=== PATIENT | female | born 1960 | race Asian ===

== ENCOUNTER 2018-05-11 15:11 | Emergency (ER) | payer OTHER ==
[~2018-05-11] VITALS: Ht 152.4 cm; Wt 63.6 kg
[2018-05-11] MEDS ORDERED: ASPI81 PO (15:21)
[2018-05-11] MEDS ORDERED: METF-960 PO (15:21)
[2018-05-11] MEDS ORDERED: LOSA50TA64 PO (15:21)
[2018-05-11] MEDS ORDERED: AMLO-512 PO (15:21)
[2018-05-11 15:29] LABS: GLUCOSE,POINT OF CARE 160 MG/DL (70-110)
[2018-05-11] MEDS ORDERED: KETOROLAC TROMETHAMINE 30 MG/ML VIAL IM ONE (18:00)
[2018-05-11 18:15] VITALS: BP 122/80
== END 2018-05-11 19:00 | disposition home or self-care (01) ==
LOC: EMS 15:11
DX: S83.91XA Sprain of unspecified site of right knee, initial encounter (principal); M10.9 Gout, unspecified; I10 Essential (primary) hypertension; E11.9 Type 2 diabetes mellitus without complications; Z79.84 Long term (current) use of oral hypoglycemic drugs; X58.XXXA Exposure to other specified factors, initial encounter; Y93.89 Activity, other specified; Y92.89 Other specified places as the place of occurrence of the external cause; Y99.8 Other external cause status
CPT/HCPCS: 73562; 82962; 96372; 99283; J1885